=== PATIENT | male | born 1950 | race Caucasian/White ===

== ENCOUNTER → 2016-12-15 | Outpatient (CLI) | payer BC ==
[~2016-12-15] MED LIST: ASPI81TA2 PO; ATOR40TA59 PO; CARV6.252 PO; GADOBUTROL 10 MMOL/10 ML VIAL IV ONE; LISI-338 PO
--- NOTE | 2016-12-15 08:44 | KCIC ---
PROCEDURE Two-view orbits 12/15/2016 HISTORY Metal exposure to the eye. Pre MRI clearance. FINDINGS [place] radiographs of the orbits with the patient looking up and down were performed. No radiopaque foreign body is seen. The visualized paranasal sinuses are clear. IMPRESSION No radiopaque foreign body is seen involving either orbit. Electronically signed by: Aldair Romeo MD (Dec 15, 2016 08:41:37)
--- NOTE | 2016-12-15 10:37 | KCIC ---
PROCEDURE MRI of the brain/IAC's without and with contrast 12/15/2016 HISTORY Vertigo with left-sided hearing loss. Dizziness. TECHNIQUE Unenhanced T1 weighted sagittal and axial and FLAIR, gradient echo, T2 weighted and diffusion weighted axial images of the brain were obtained. Thin section T1 weighted axial and T2 weighted axial coronal images through the IAC's were obtained. After the intravenous administration of 8 cc of Gadovist, enhanced T1 weighted axial images of the brain were obtained. Additionally enhanced thin-section T1 weighted axial coronal images through the IAC's were obtained. FINDINGS There is generalized parenchymal atrophy. Patchy and small focal areas of abnormally increased signal intensity are seen within the periventricular and subcortical white matter of both cerebral hemispheres on the FLAIR and T2 weighted images consistent with areas of small vessel ischemic disease. No acute parenchymal abnormality is seen. No extra-axial fluid collection is noted. No area of abnormal contrast enhancement is seen. MRI images through the IAC's are within normal limits. No abnormal soft tissue mass or area of abnormal contrast enhancement is seen. A 1.7 centimeter mucous retention cyst is seen involving left maxillary sinus. Mild mucosal thickening is seen throughout the paranasal sinuses. Normal flow voids are seen within the major vascular structures surrounding the brain parenchyma. IMPRESSION No acute abnormality is seen. Electronically signed by: Aldair Romeo MD (Dec 15, 2016 10:35:20)
== END | disposition home or self-care (01) ==
LOC: KCIC MRI 07:50
PROVIDERS: ATTEND Internal Medicine
DX: H02.839 Dermatochalasis of unspecified eye, unspecified eyelid (principal); R42 Dizziness and giddiness
CPT/HCPCS: 70030; 70553; A9585